=== PATIENT | male | born 1985 | race Caucasian/White ===

== ENCOUNTER 2022-01-29 13:40 | Emergency (ER) | payer OTHER, SELFPAY ==
[2022-01-29 13:48] VITALS: BP 146/69; PULSE 93; RESP 16; TEMP 36.7; O2SAT 100
--- NOTE | 2022-01-29 13:50 | ED.NAVMDI ---
HPI - Nausea/Vomiting/Diarrhea General Chief complaint: Nausea/Vomiting/Diarrhea Stated complaint: Chills,Nausea Time Seen by Provider: 01/29/22 14:00 Source: patient and RN notes reviewed Mode of arrival: ambulatory Limitations: no limitations History of Present Illness HPI Narrative: 36-year-old male presents with concern for 3-day history of fatigue, chills, nausea. He reports he slept all day yesterday. He denies vomiting, diarrhea, abdominal pain. He denies cough, nasal congestion, sore throat, ear pain. Reports occasional headache. He denies known sick contacts. Reports he missed work today. He has not taken any aumr-fuh-[id number] medications for his symptoms MD elicited complaint: nausea Related Data Home Medications Medication Instructions Recorded Confirmed hydroxyzine HCl 10 mg tablet 10 mg PO TID PRN Anxiety 01/29/22 01/29/22 Allergies Allergy/AdvReac Type Severity Reaction Status Date / Time No Known Allergies Allergy Mild Verified 01/29/22 13:57 Review of Systems Review of Systems: CONSTITUTIONAL: Reports malaise, chills, fatigue. Denies fever ENT: Denies rhinorrhea, congestion, sinus pain, otalgia or sore throat. CARDIOVASCULAR: Denies chest pain, palpitations, or edema. RESPIRATORY: Denies cough or dyspnea. GASTROINTESTINAL: Denies abdominal pain, vomiting, diarrhea, bloody, or mucous stools. Reports nausea GENITOURINARY: Denies dysuria or hematuria. MUSCULOSKELETAL: Denies myalgia. NEUROLOGIC: Reports headache. All systems reviewed & are unremarkable except as noted in HPI and below PMFSH Comments At time of signature, agree with nursing past medical, surgical, social and family history. There is no relevant family history pertinent to the presenting complaint Exam Narrative: GENERAL: Well-appearing, well-nourished, and in no acute distress. HEAD: Normocephalic, atraumatic. EYES: PERRLA, conjunctivae clear, and EOMI. ENT: Nares clear, turbinates pink, no rhinorrhea or epistaxis. Mucous membranes moist. Oropharynx without edema, erythema, or lesions. Tonsils not enlarged and without exudate. NECK: Supple. No lymphadenopathy CHEST: Speaks in full sentences. No respiratory distress. HEART: Regular rate and rhythm. ABDOMEN: Soft, flat, nondistended, nontender. No guarding, rebound tenderness, or rigidity. No pulsatile masses. Bowel sounds present in all four quadrants. No organomegaly. Negative Rincon?s sign. No periumbilical tenderness. No Supra public tenderness or distension. Good femoral pulses bilaterally. No hernia noted. No scars or surface trauma. SKIN: Warm, dry, no rash. NEURO: Alert and oriented x3. PSYCH: Normal mood and affect Course Course Emergency Course: Patient is aware of diagnosis, understands and agrees to treatment plan. Anticipatory guidance given. Patient agrees to follow-up as directed and is aware of reasons to seek care at the emergency department. Portions of this record may have been created with voice recognition software Level of Care: Express Care Visit Vital Signs Vital signs: Reviewed. MDM - Nausea/Vomiting/Diarrhea MDM Narrative Medical decision making narrative: Differential diagnosis considered: Walter virus, strep pharyngitis, allergic rhinitis, upper respiratory tract infection, sinusitis, rhinosinusitis, nasopharyngitis. viral pharyngitis, otitis media, otitis externa, pneumonia, bronchitis, viral cough syndrome, viral syndrome, and influenza. Exam findings show no acute concerns or changes; patient is non-toxic appearing and is in no distress. Patient is appropriate for outpatient treatment and follow-up. Critical Care Time Critical Care Time Critical Care Time: No Discharge Plan Discharge Clinical Impression: Acute viral syndrome Patient Disposition: Home, Self-Care Condition: Stable Instructions: Viral Syndrome (ED) Additional Instructions: Your rapid COVID test is negative -Your symptoms are likely caused by a virus, an
== END 2022-01-29 14:14 | disposition home or self-care (01) ==
PROVIDERS: Emergency Provider Nurse Practitioner; PCP Internal Medicine
DX: B34.9 Viral infection, unspecified (principal); Z20.822 Contact with and (suspected) exposure to COVID-19; F41.9 Anxiety disorder, unspecified
CPT/HCPCS: 87426; 99213; C9803; G0463

== ENCOUNTER 2022-08-28 13:07 | Emergency (ER) | payer OTHER, SELFPAY ==
[2022-08-28 13:13] VITALS: BP 123/86; PULSE 93; RESP 16; TEMP 36.6; O2SAT 100
--- NOTE | 2022-08-28 13:45 | ED.GENADULT ---
HPI - General Adult General Chief complaint: Upper Respiratory Infection Stated complaint: Cough/Chest Congestion Source: patient Mode of arrival: ambulatory Limitations: no limitations History of Present Illness HPI narrative: Patient presents for evaluation of sick symptoms for last 4 days. Symptoms include chills, cough, pleuritic chest pain, sore throat, diarrhea, shortness of breath. He denies objective fever, nausea, vomiting. No recent sick contacts to his knowledge. No personal history of COVID. He is not taking any medications to assist with his symptoms. He smokes approximately 1 pack per day. No additional complaints or concerns. Related Data Home Medications Medication Instructions Recorded Confirmed hydroxyzine HCl 10 mg tablet 10 mg PO TID PRN Anxiety 01/29/22 01/29/22 Allergies Allergy/AdvReac Type Severity Reaction Status Date / Time No Known Allergies Allergy Mild Verified 01/29/22 13:57 Review of Systems Review of Systems: CONSTITUTIONAL: Reports chills and fatigue. denies or sweats. EYES: Denies visual changes, redness, or discharge. ENT: Reports recent sore throat, now resolved. Denies rhinorrhea, congestion,or otalgia. CARDIOVASCULAR: Reports pleuritic chest pain. denies chest pain otherwise, palpitations, or edema. RESPIRATORY: Reports cough. Denies shortness of breath. GASTROINTESTINAL: Reports recent diarrhea. denies abdominal pain, nausea, or vomiting GENITOURINARY: Denies dysuria or hematuria. SKIN: Denies rash or itching. MUSCULOSKELETAL: Denies back pain, joint pain, or myalgia. NEUROLOGIC: Denies headache, numbness, dizziness, or weakness. PSYCHIATRIC: Denies anxiety or depression. [facility] Past Medical History Medical History (Updated 08/28/22 @ 14:08 by RODY Cottrell, ) No pertinent past medical history Surgical History Surgical History No pertinent past surgical history Family History Family History Mother Family history non-contributory Social History Social History Smoking packs per day: 1 Smoking cigarettes per day: 20.0 Smoking status: Current every day smoker Alcohol intake: current Alcohol use details: social Substance use: never Living arrangements: with family Gender identity (if verbalized by the patient): Male Sexual Orientation (if Verbalized by the Patient): Straight or Heterosexual Spiritual care concerns: No Exam Narrative: GENERAL: Well-appearing, well-nourished, and in no acute distress. HEAD: Normocephalic, atraumatic. EYES: PERRLA and EOMI. ENT: Nares clear, no rhinorrhea or epistaxis. Mucous membranes moist. Posterior pharyngeal erythema without exudate. Uvula is midline. Bilateral TMs pearly meléndez nonbulging NECK: Supple. No adenopathy or masses. No carotid bruits or JVD CHEST: Clear to auscultation. No respiratory distress. No wheezes rales or rhonchi HEART: Regular rate and rhythm. No murmur heard. Normal peripheral pulses. ABDOMEN: Soft, nontender, nondistended, normal active bowel sounds. EXTREMITIES: Normal range of motion. No edema. SKIN: Warm, dry, no rash. NEURO: No focal deficits. Alert and oriented x3. PSYCH: Normal mood and affect. Course Course Emergency Course: This is a 37-year-old male who presented for evaluation of sick symptoms. COVID and influenza were negative. Exam is consistent with acute viral syndrome. Increase hydration. [id number] agents for symptom management. Follow up with primary provider. To the ER for worsening symptoms. Patient in agreement with plan of care Level of Care: Express Care Visit Vital Signs Vital signs: Vital Signs Temperature 36.6 C 08/28/22 13:13 Pulse Rate 93 08/28/22 13:13 Respiratory Rate 16 08/28/22 13:13 Blood Pressure 123/86 08/28/22 1
== END 2022-08-28 14:13 | disposition home or self-care (01) ==
PROVIDERS: Emergency Provider Nurse Practitioner
DX: B34.9 Viral infection, unspecified (principal); Z20.822 Contact with and (suspected) exposure to COVID-19; F17.210 Nicotine dependence, cigarettes, uncomplicated
CPT/HCPCS: 87426; 87804; 99212; C9803; G0463

== ENCOUNTER 2022-11-19 08:50 | Emergency (ER) | payer OTHER, SELFPAY ==
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
[2022-11-19 09:00] VITALS: BP 132/94; PULSE 79; RESP 16; TEMP 36.8; O2SAT 100
== END 2022-11-19 09:38 | disposition home or self-care (01) ==
PROVIDERS: Emergency Provider Nurse Practitioner Family; PCP Internal Medicine
DX: S82.832A Other fracture of upper and lower end of left fibula, initial encounter for closed fracture (principal); W05.1XXA Fall from non-moving nonmotorized scooter, initial encounter; F17.210 Nicotine dependence, cigarettes, uncomplicated
CPT/HCPCS: 73564; 99214; G0463

== ENCOUNTER 2024-01-23 13:46 | Emergency (ER) | payer OTHER, SELFPAY ==
--- NOTE | ~2024-01-23 | XR_ITS ---
EXAMINATION: XR toe 4th LT min 2V DATE: 01/23/2024 14:34 INDICATION: Left fifth toe injury. TECHNIQUE: 4 views of left fifth toe were obtained. COMPARISON: None. FINDINGS: Bone alignment is normal. No fracture. Joint spaces are normal. IMPRESSION: 1. No fracture. Reviewed, dictated and finalized at location A. IMPRESSION: 1. No fracture.
[2024-01-23 13:58] VITALS: BP 151/75; PULSE 75; RESP 18; TEMP 36.4; O2SAT 100
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
== END 2024-01-23 14:58 | disposition home or self-care (01) ==
PROVIDERS: Emergency Provider Nurse Practitioner Family; PCP Internal Medicine
DX: S93.505A Unspecified sprain of left lesser toe(s), initial encounter (principal); W22.8XXA Striking against or struck by other objects, initial encounter; F17.210 Nicotine dependence, cigarettes, uncomplicated
CPT/HCPCS: 73660; 99213; G0463